=== PATIENT | female | born 1995 | race Caucasian/White ===

== ENCOUNTER 2017-06-30 11:11 | Day surgery (SDC) | payer BC ==
[~2017-06-30] VITALS: Ht 160 cm; Wt 63.2 kg
[~2017-06-30 11:11] MED LIST: BUPIVACAINE/PF 0.5% ONE; EPINEPHRINE 1 MG/ML, 1ML ONE; LIDOCAINE/PF 1%, 30ML ONE
[2017-06-30 11:37] VITALS: BP 125/82
[2017-06-30] MEDS ORDERED: LACTATED RINGERS 1,000 ML IV SCH (11:37)
[2017-06-30] MEDS ORDERED: SPIR100T2 PO (11:41)
[2017-06-30] MEDS ORDERED: ETHI1TAB5 PO (11:41)
[2017-06-30] MEDS ORDERED: LIDOCAINE 1%, 2ML ONE (11:47)
[2017-06-30 11:54] LABS: HCG UR OBC PASS
[2017-06-30] MEDS ORDERED: FENTANYL PF 100 MCG/2ML ONE ×2 (11:59→14:22)
[2017-06-30] MEDS ORDERED: MIDAZOLAM 1 MG/ML, 2ML ONE ×2 (11:59→14:33)
[2017-06-30] MEDS ORDERED: LIDOCAINE 1%, 2ML SQ PRN (12:00)
[2017-06-30] MEDS ORDERED: KETOROLAC 30 MG/1 ML ONE (13:35)
[2017-06-30] MEDS ORDERED: ONDANSETRON 2MG/ML, 2ML ONE (13:35)
[2017-06-30] MEDS ORDERED: DEXAMETHASONE 4 MG/ML, 5ML ONE (13:35)
[2017-06-30] MEDS ORDERED: CEFAZOLIN 1,000 MG ONE (13:35)
[2017-06-30] MEDS ORDERED: METOCLOPRAMIDE 5 MG/ML, 2ML ONE (13:35)
[2017-06-30] MEDS ORDERED: PROPOFOL 10 MG/ML, 20ML ONE (13:35)
[2017-06-30] MEDS ORDERED: BUPIVACAINE/PF-EPI 0.5% 1:200K INFIL ONE (13:51)
[2017-06-30] MEDS ORDERED: HYDROmorphone 2 MG/ML, 1ML ONE (13:53)
[2017-06-30] MEDS: FENTANYL PF 100 MCG/2ML IV PRN ×3 (14:24→14:35)
[2017-06-30] MEDS ORDERED: OXYcodone 5 MG/5 ML ORAL.SOL UDC PO PRN (14:30)
[2017-06-30] MEDS ORDERED: LABETALOL 5MG/ML, 20ML IV PRN (14:30)
[2017-06-30] MEDS ORDERED: MIDAZOLAM 1 MG/ML, 2ML IV PRN (14:30)
[2017-06-30] MEDS ORDERED: PROMETHAZINE 25 MG/ML, 1ML IV PRN (14:30)
[2017-06-30] MEDS ORDERED: HYDROmorphone 1 MG/ML, 1ML IV PRN (14:30)
[2017-06-30] MEDS ORDERED: MEPERIDINE/PF 25MG/0.5ML IVPush PRN (14:30)
[2017-06-30] MEDS ORDERED: hydrALAzine 20 MG/ML, 1ML IV PRN (14:30)
[2017-06-30] MEDS ORDERED: ONDANSETRON 2MG/ML, 2ML IVPush PRN (14:30)
[2017-06-30] MEDS ORDERED: ACETAMINOPHEN 325 MG TABLET PO PRN (14:30)
[2017-06-30] MEDS ORDERED: ALBUTEROL/IPRATROPIUM 2.5MG/0.5MG, 3 ML NPPB PRN (14:30)
[2017-06-30] MEDS ORDERED: ACETAMINOPHEN 650 MG/20.3 ML UDC ONE (15:13)
[2017-06-30] MEDS ORDERED: OXYcodone 5 MG/5 ML ORAL.SOL UDC ONE (15:14)
[2017-06-30] MEDS ORDERED: SPIRONOLACTONE 100 MG TABLET PO SCH (21:00)
[2017-07-01] MEDS ORDERED: [UNRECOGNIZED DRUG - OTHER] PO SCH (09:00)
[2017-07-01] MEDS ORDERED: DROSPIRENONE PO SCH (09:00)
[2017-07-01] MEDS ORDERED: ETHINYL ESTRADIOL PO SCH (09:00)
== END 2017-06-30 17:00 ==
LOC: OUT 11:11
PROVIDERS: ATTEND Orthopaedic Surgery
DX: Z47.2 Encounter for removal of internal fixation device (principal); M85.661 Other cyst of bone, right lower leg; Z98.890 Other specified postprocedural states; Z88.0 Allergy status to penicillin
CPT/HCPCS: 20680; 27637; 81025; C1762; J0171; J0690; J1100; J1170; J1885; J2250; J2405; J2704; J2765; J3010; J3490; J7120